=== PATIENT | female | born 1945 | race Caucasian/White ===

== ENCOUNTER 2018-04-10 19:43 | Emergency (ER) | payer OTHER, MEDICARE ==
[~2018-04-10] VITALS: Ht 165.1 cm; Wt 54.4 kg
[2018-04-10 21:08] LABS: ABSOLUTE BASOPHIL COUNT 0.1 /CUMM (0.0-0.2); ABSOLUTE EOSINOPHIL COUNT 0.1 /CUMM (0.0-0.7); ABSOLUTE GRANULOCYTE CT 3.9 /CUMM (1.4-6.5); ABSOLUTE LYMPH COUNT 2.4 /CUMM (1.2-3.4); ABSOLUTE MONOCYTE COUNT 0.5 /CUMM (0.10-0.60); BASOPHIL % 0.8 % (0.0-2.0); GRANULOCYTE % 56.1 % (42.2-75.2); HEMATOCRIT 39.7 % (37-47); MEAN CORPUSCULAR HGB 29.9 PG (27.0-31.0); MEAN CORPUSCULAR HGB CONC 33.5 G/DL (33.0-37.0); MEAN CORPUSCULAR VOLUME 89.2 FL (81.0-99.0); MEAN PLATELET VOLUME 9.7 FL (7.4-10.4); PLATELET COUNT 200 /CUMM (130-400); RBC DISTRIBUTION WIDTH 12.4 % (11.5-14.5); RED BLOOD CELL CT 4.45 /CUMM (4.20-5.40); WHITE BLOOD CELL COUNT 6.9 /CUMM (4.8-10.8)
--- NOTE | 2018-04-10 21:25 | ED GENERAL ADULT ---
History of Present Illness General Chief Complaint: General Adult Stated Complaint: REQUI EVAL S/P LOW BLD GLUC LVL STILL FEELS BAD Source: patient, family Exam Limitations: no limitations Vital Signs & Intake/Output Vital Signs & Intake/Output Vital Signs Date Time Temp Pulse Resp B/P B/P Pulse O2 O2 Flow FiO2 Mean Ox Delivery Rate 04/10 2146 95.8 61 18 156/70 99 Room Air 04/10 2002 95.4 69 18 161/79 97 Room Air Allergies Coded Allergies: No Known Allergies (04/10/18) Triage Note: PT FROM HOME C/O LOW SUGAR PER PTS DAUGHTER AND PT FEELING "OFF". PT IS [place] SPEAKING ONLY, PTS DAUGHTER IN ROOM CHART CLERK. PTS DAUGHTER STATES THAT PTS SUGAR DROPPED TO 58 IN THE EVENING, PTS DAUGHTER PROVIDED PT WITH CAKE AND A BANANA, 115 LAST BSG AT HOME PER DAUGHTER. PT HAS HX OF ALZHEIMERS, UNABLE TO STATE WHAT BOTHERS PT AT THIS TIME, PTS RESPONSE "I DONT KNOW". PT IN NO DISTRESS CURRENTLY, DENIES CP, SOB, ABD PAIN, ARM NUMBNESS/TINGLING, JAW OR BACK PAIN. PTS VSS AND BAG IN TRIAGE 153. Triage Nurses Notes Reviewed? yes Onset: Abrupt Duration: day(s): (1), better, gone now Timing: single episode today Injury Environment: home Severity: mild, moderate No Modifying Factors: none LMP (ages 10-50): unknown : No Patient currently breastfeeds: No HPI: 72-year-old female history of dementia, hypothyroidism and [id number] diabetes for evaluation of low blood sugar. The patient has a history of dementia and most of the HPI is from her daughter. Daughter reports that patient was reporting not feeling well. She was unable to describe exactly what was bothering her. She started complaining of this earlier today. Patient's blood sugar at that time was 58. She was given sugary foods and her blood sugar increased patient stopped complaining currently she feels well and has no concerns. Daughter reports she wants her checked out to make sure nothing is wrong. Patient never had a fever. Her mental status is at baseline currently. She denies urinary symptoms chest pain shortness of breath abdominal pain nausea vomiting or diarrhea. No new medications she's been taking everything as directed. (Bud Bernal) Past History Travel History Traveled to [place] past 21 day No Medical History Any Pertinent Medical History? see below for history Neurological: Alzheimer's disease Endocrine: hypothyroidism Surgical History Surgical History: non-contributory Psychosocial History What is your primary language Albanian Tobacco Use: Never used Family History Hx Contributory? No (Bud Bernal) Review of Systems Review of Systems Constitutional: Reports: no symptoms. EENTM: Reports: no symptoms. Respiratory: Reports: no symptoms. Cardiovascular: Reports: no symptoms. GI: Reports: no symptoms. Genitourinary: Reports: no symptoms. Musculoskeletal: Reports: no symptoms. Skin: Reports: no symptoms. Neurological/Psychological: Reports: no symptoms. Hematologic/Endocrine: Reports: no symptoms. Immunologic/Allergic: Reports: no symptoms. All Other Systems: Reviewed and Negative (Bud Bernal) Physical Exam Physical Exam General Appearance: well developed/nourished, no apparent distress, alert Head: atraumatic, normal appearance Eyes: Bilateral: normal appearance, PERRL, EOMI. Ears, Nose, Throat: normal pharynx, normal ENT inspection, hearing grossly normal Neck: normal inspection, supple, full range of motion Respiratory: normal breath sounds, chest non-tender, no respiratory distress, lungs clear Cardiovascular: regular rate/rhythm, normal peripheral pulses Peripheral Pulses: 2+ radial (R), 2+ radial (L) Gastrointestinal: soft, non-tender Back: normal inspection, normal range of motion, no vertebral tenderness Extremities: normal inspection, normal range of motion, no edema Neurologic/Psych: no motor/sensory deficits, awake, alert, oriented x 3, normal gait Skin: intact, normal color, warm/dry Core Measures ACS in differential dx? No CVA/TIA Diagnosis: No Sepsis Present: No Sepsis Focused Exam Completed? No (Bud Bernal) Progress Differential Diagnoses I considered the following diagnoses in my evaluation of the patient: [ Hypoglycemia, electrolyte abnormality, sepsis, dementia, medication side effect] Plan of Care: Orders Procedure Date/time Status TROPONIN LEVEL 04/10 2009 Complete LIPASE 04/10 2009 Complete HEPATIC FUNCTION PANEL 04/10 2009 Complete CBC WITHOUT DIFFERENTIAL 04/10 2009 Complete BASIC METABOLIC PANEL 04/10 2009 Complete AMYLASE 04/10 2009 Complete EKG 04/10 2009 Active Laboratory Tests 04/10/18 2142: Urine Color Cancelled, Urine Clarity Cancelled, Urine pH Cancelled, Ur Specific [place] Cancelled, Urine Protein Cancelled, Urine Ketones Cancelled, Urine Nitrite Cancelled, Urine Bilirubin Cancelled, Urine Urobilinogen Cancelled, Ur Leukocyte Esterase Cancelled, Ur Microscopic Cancelled, Urine Hemoglobin Cancelled, Urine Glucose Cancelled 04/10/18 2100: Anion Gap 12, Estimated GFR > 60, BUN/Creatinine Ratio 28.6 H, Glucose 217 H, Calcium 9.2, Total Bilirubin 0.3, Direct Bilirubin 0, AST 39 H, ALT 32, Alkaline Phosphatase 77, Troponin I < 0.01, Total Protein 6.8, Albumin 4.0, Amylase 87, Lipase 153, CBC w Diff NO MAN DIFF REQ, RBC 4.45, MCV 89.2, MCH 29.9 , MCHC 33.5, RDW 12.4, MPV 9.7, Gran % 56.1, Lymphocytes % 34.9, Monocytes % 7.2 , Eosinophils % 1.0, Basophils % 0.8, Absolute Granulocytes 3.9, Absolute Lymphocytes 2.4, Absolute Monocytes 0.5, Absolute Eosinophils 0.1, Absolute Basophils 0.1 Microbiology 04/10 2222 BLOOD: Blood Culture - CAN Cancelled: Cancelled via OE: Patient Refused Patient seen and evaluated. She is here for evaluation of low blood sugar and reported not feeling well. On evaluation currently patient denies any concerns. Daughter reports she is at baseline. Her blood sugar has now normalized and is slightly elevated. She has been eating and drinking normally. She is afebrile her vitals are stable. Basic labs were obtained and do not show any abnormalities. Patient was unable to provide a urine sample. Daughter states that she has no history of UTIs she's been behaving normally she wants to take her home does not want to wait for a urine sample. Discussed return precautions in detail advised to follow-up with the primary care doctor. Case discussed with Dr. Laura he agrees. Initial ED EKG: normal sinus rhythm, MULTIPLE PVCS, LEFT ATRIAL ABN, BORDERLINE R WAVE PROGRESSION (Bud Bernal) Departure Departure Disposition: HOME OR SELF CARE Condition: Stable Clinical Impression Primary Impression: Hypoglycemia Referrals: Patient Has No Primary Care Dr (PCP/Family) Additional Instructions: Monitor symptoms closely return with any concerns follow-up with the primary care doctor for recheck this week. Departure Forms: Customer Survey General Discharge Information (Bud Bernal) PA/SERVICE ADVISOR Co-Sign Statement Statement: ED Attending supervision documentation- [] I saw and evaluated the patient. I have also reviewed all the pertinent lab results and diagnostic results. I agree with the findings and the plan of care as documented in the PA's/SERVICE ADVISOR's documentation. [x] I have reviewed the ED Record and agree with the PA's/SERVICE ADVISOR's documentation. [] Additions or exceptions (if any) to the PAs/SERVICE ADVISOR's note and plan are summarized below: [] (Valentín MARION,David Lamar) Critical Care Note Critical Care Note Critical Care Time: non-applicable (Bud Bernal)
[2018-04-10 21:46] VITALS: BP 156/70
== END 2018-04-10 22:40 ==
LOC: ERH 19:43
PROVIDERS: Pediatrics
DX: E11.649 Type 2 diabetes mellitus with hypoglycemia without coma (principal)
CPT/HCPCS: 87040; 93005; 93010